=== PATIENT | male | born 1985 | race Two or more races ===

== ENCOUNTER 2017-06-30 17:31 | Emergency (ER) | payer SELFPAY ==
[2017-06-30 17:39] VITALS: BP 120/72; BMI 28.1
--- NOTE | 2017-06-30 18:35 | DR.EYE ---
HPI - Time Seen Time seen: 18:30 - PCP Primary Care Physician: JANICE - HPI Comment HPI Comment: GETTING WORSE. REDNESS MAINLY NASALASPECT OF LT EYE. - Nurses notes reviewed Nurses Notes Review: Yes - Complaint Chief Complaint Doctors Comments: REDNESS PAIN AND DRAINAGE LEFT EYE TIMES 2 DAYS. 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 - Source History Provided: Patient, Other - Mode of arrival Mode of Arrival: Ambulatory - Timing Onset of Chief Complaint: 06/28/17 Came on: Suddenly - Quality Quality: Pain, Red, Yellow discharge - Location Location: Left eye - Context Onset: Spontaneous Recent: None History of: None - Severity Symptom severity: Moderate - Associated signs and symptoms Associated signs and symptoms: Tearing, Photophobia PMH - PMH Past Medical History: No Past Surgical History: No - Family History History of Family Medical Conditions: No - Social History Does patient currently use any type of tobacco product: No Have you used tobacco products in the last 12 months: No Type of Tobacco Use: None Does any household member use tobacco: No Alcohol Use: None Do you use any recreational Drugs:: No Lives With: Family Lives Where: Home - infectious screening In the last 2 months have you had wt loss of >10#?: NO Have you had fever, night sweats or hemotysis?: No Have you traveled outside the country in the last 6 months?: No Isolation: Standard ROS - Review of Systems Constitutional: No Symptoms Reported Eyes: Eye Pain, Discharge, Other (REDNESS LT EYE.) ENTM: No Symptoms Reported Respiratoy: No Symptoms Reported Cardiovascular: No Symptoms Reported Gastrointestinal/Abdominal: No Symptoms Reported Genitourinary: No Symptoms Reported Neurological: No Symptoms Reported Musculoskeletal: No Symptoms Reported Integumentary: No Symptoms Reported Hematologic/Lymphatic: No Symptoms Reported Endocrine: No Symptoms Reported All Other Systems: Reviewed and Negative PE - Vital Signs Vitals: Temperature 98.4 F Pulse Rate 50 Respiratory Rate 20 Blood Pressure 120/72 O2 Sat by Pulse Oximetry 98 - General Limitations: No Limitations General Appearance: Alert - Head Head Exam: Normal Inspection - Eyes Eye exam: PERRL, Conjunctival Injection (LT EYE). negative: Periorbital Swelling, Periorbital Tenderness Eyelids: Normal Inspection: Bilateral Pupils: Regular, Round: Bilateral, Reactive: Bilateral Sclera/Conjunctival: Injection: Left - ENT ENT Exam: Normal External Ear Exam External Ear Exam: Normal External Inspection TM/Canal Exam: Bilateral Normal Nose Exam: Normal Nose Exam Mouth Exam: Normal Inspection Throat Exam: Normal Inspection - Neck Neck Exam: Normal Inspection - Chest Chest Inspection: Symmetric Chest Wall Rise - Respiratory Respiratory Exam: Normal Lung Sounds Bilat Respiratory Exam: Bilateral Clear to Auscultation - Cardiovascular Cardiovascular Exam: Regular Rate, Normal Rhythm, Normal Heart Sounds - Abdominal Exam Abdominal Exam: Normal Inspection - Extremities Extremities Exam: Normal Inspection - Back Back Exam: Normal Inspection - Neurologic Neurological Exam: Alert, Oriented X3 - Psychiatric Psychiatric Exam: Normal Affect, Normal Mood - Skin Skin Exam: Normal Color [facility] - Additional Information Additional Information Obtained From: Family - Differential Diagnosis Differential Diagnosis: Bacterail conjunctivitis Course - Treatment Treatment: SEE ORDERS. - Education/Counseling Education/Counseling: Patient, Family, Education Educated On: Diagnosis, Needs for Follow Up - Diagnosis Discharge Problem: Conjunctivitis Qualifiers: Conjunctivitis type: acute Acute conjunctivitis type: bacterial Laterality: left Qualified Code(s): H10.32 - Unspecified acute conjunctivitis, left eye - Discharge Plan Disposition: HOME, SELF-CARE Condition: Stable Prescriptions: Ibuprofen [MOTRIN TAB 600 MG *] 600 mg PO TID PRN #20 tab PRN Reason: Pain/Inflammation [id number] (Ophth) [CORTISPORIN (ophth) EYE DROPS SUSP *] 2 drop AFFEYE Q4H #1 ea - Follow ups/Referrals Follow ups/Referrals: [facility],None [Primary Care Provider] - 2 days AYAH OSWALD [CONSULTING PHYSICIAN] - 2 days - Instructions Instructions: Bacterial Conjunctivitis, [id number], How to Use Eye Drops and Eye Ointments Additional Instructions: RETURN TO ED IF WORSE.
== END 2017-06-30 19:13 | disposition home or self-care (01) ==
LOC: ER 17:45
DX: H10.32 Unspecified acute conjunctivitis, left eye (principal)
CPT/HCPCS: 99281